=== PATIENT | female | born 1995 | race Caucasian/White ===

== ENCOUNTER 2021-04-10 09:03 | Inpatient (IN) ==
[2021-04-10 08:29] LABS: Basophils % 0.2 %; Eosinophils % 0.1 %; Hematocrit 37.5 % (35.3-44.9); Hemoglobin 12.3 g/dL (11.5-15.4); Immature Granulocytes % 0.7 % (0-4); Lymphocytes # 1.9 K/mcL (0.6-4.6); Lymphocytes % 11.2 %; Mean Corpuscular HGB Conc 32.8 g/dL (31.6-35.5); Mean Corpuscular Volume 85.4 fL (83.0-100.0); Mean Platelet Volume 10.6 fL (9.4-12.4); Monocytes # 0.9 K/mcL (0.0-1.3); Monocytes % 5.4 %; Neutrophils # 13.6 K/mcL (1.6-8.9); Platelet Count 262 K/mcL (140-400); Red Blood Count 4.39 M/mcL (3.82-4.97); Red Cell Distribution Width 12.7 % (11.5-14.5); Segmented Neutrophils % 82.4 %; White Blood Count 16.5 K/mcL (4.3-11.1)
[2021-04-10 08:38] LABS: Creatinine,Urine 29 mg/dL; Protein/Creatinine Ratio,Urine 0.14 mg/mg (0.00-0.20)
[2021-04-10 08:48] LABS: Alanine Aminotransferase 8 Units/L (7-52); Aspartate Amino Transferase 14 Units/L (13-39); BUN/Creatinine Ratio 13 (6-26); Blood Urea Nitrogen 9 mg/dL (6-20); Glucose 87 mg/dL (70-105); Lactate Dehydrogenase 173 Units/L (140-271); Uric Acid 6.3 mg/dL (2.3-7.6); eGFR For African Americans > 60 (> 60); eGFR For Non-African Americans > 60 (> 60)
[2021-04-10] MEDS ORDERED: *HR* Nalbuphine 10 MG/ML AMPUL IV PRN (09:42)
[2021-04-10] MEDS ORDERED: Lidocaine 1% 20 ML MDV INFILT PRN (09:42)
[2021-04-10] MEDS ORDERED: Naloxone 0.4 MG/ML INJ IVP PRN (09:42)
[2021-04-10] MEDS ORDERED: Famotidine 20 MG/2 ML VIAL IVP PRN (09:42)
[2021-04-10] MEDS ORDERED: Metoclopramide 10 MG/2 ML VIAL IVP PRN (09:42)
[2021-04-10] MEDS ORDERED: Oxytocin 20 units/ LR 1000 mL 20 UNIT/1,000 ML BAG IVC SCH ×2 (09:45→23:38)
[2021-04-10] MEDS: Ringers Solution, Lactated 1,000 ML IVC SCH ×2 (10:58→13:24)
[2021-04-10 11:04] LABS: Influenza A PCR Negative (Negative); Influenza B PCR Negative (Negative); Resp. Syncytial Virus PCR Negative (Negative)
[2021-04-10 11:06] LABS: Amphetamine Screen,Urine Negative ng/mL (Cutoff=1000); Barbiturate Screen,Urine Negative ng/mL (Cutoff=200); Benzodiazepines Screen,Urine Negative ng/mL (Cutoff=200); Cannabinoid Screen,Urine Negative ng/mL (Cutoff = 50); Cocaine Screen,Urine Negative ng/mL (Cutoff= 300); Opiate Screen,Urine Negative ng/mL (Cutoff=300); Phencyclidine Screen,Urine Negative ng/mL (Cutoff=25)
[2021-04-10] MEDS ORDERED: EPHEDrine 50 MG/ML VIAL IVP PRN (11:13)
[2021-04-10] MEDS ORDERED: Ropivacaine/PF 0.2% 20 ML VIAL EP ONE (11:13)
[2021-04-10] MEDS ORDERED: *HR* FentaNYL (PF) 100 MCG/2 ML VIAL EP ONE (11:13)
[2021-04-10 11:15] LABS: SARS-CoV-2 by PCR (In House) Negative (Negative)
[2021-04-10] MEDS ORDERED: Epidural Premix (fent/bupiv) 110 ML EP ONE (11:19)
[2021-04-10] MEDS: Epidural Premix (fent/bupiv) 110 ML EP SCH ×2 (11:40→17:07)
[2021-04-10] MEDS ORDERED: Sennosides 8.6 MG TABLET PO PRN (23:38)
[2021-04-10] MEDS ORDERED: Acetaminophen 325 MG TABLET PO PRN (23:38)
[2021-04-10] MEDS ORDERED: Lanolin 7 G OINT...G. TP PRN (23:38)
[2021-04-10] MEDS ORDERED: Benzocaine/Menthol 56 GM AEROSOL SPRAY TP PRN (23:38)
[2021-04-11 04:54] LABS: Basophils % 0.2 %; Eosinophils % 0.1 %; Hematocrit 33.4 % (35.3-44.9); Hemoglobin 11.1 g/dL (11.5-15.4); Immature Granulocytes % 0.7 % (0-4); Lymphocytes # 1.9 K/mcL (0.6-4.6); Lymphocytes % 10.4 %; Mean Corpuscular HGB Conc 33.2 g/dL (31.6-35.5); Mean Corpuscular Hemoglobin 28.6 pg (28.0-33.3); Mean Corpuscular Volume 86.1 fL (83.0-100.0); Mean Platelet Volume 10.6 fL (9.4-12.4); Monocytes # 1.2 K/mcL (0.0-1.3); Monocytes % 6.6 %; Neutrophils # 15.1 K/mcL (1.6-8.9); Platelet Count 254 K/mcL (140-400); Red Blood Count 3.88 M/mcL (3.82-4.97); White Blood Count 18.4 K/mcL (4.3-11.1)
[2021-04-11] MEDS: Ibuprofen 600 MG TABLET PO PRN ×2 (08:09→15:32)
[2021-04-11] MEDS: Prenatal Vit/FA 1 EACH TABLET PO SCH (08:09)
[2021-04-12] MEDS: Ibuprofen 600 MG TABLET PO PRN (00:17)
[2021-04-12 08:33] VITALS: BP 119/77
[2021-04-12] MEDS: Prenatal Vit/FA 1 EACH TABLET PO SCH (08:54)
== END 2021-04-12 12:16 | disposition home or self-care (01) | DRG 807 ==
LOC: 1NENULAB → 1NENUOBS 04-11 00:22
PROVIDERS: ADMIT Obstetrics & Gynecology; ATTEND Obstetrics & Gynecology